=== PATIENT | female | born 1935 | race Hispanic/Latino ===

== ENCOUNTER → 2019-11-26 | Outpatient (CLI) | payer MEDICARE, BC ==
--- NOTE | 2019-11-26 13:24 | Diagnostic Imaging Report ---
CT LUMBAR SPINE WO HISTORY: Lumbar spine pain COMPARISON: None. TECHNIQUE: Axial CT images of the lumbar spine were obtained without contrast. Coronal and sagittal reconstructions obtained from the axial data. One or more of the following dose reduction techniques were used: Automated exposure control, adjustment of the mA and/or kV according to patient size, and/or utilization of iterative reconstruction technique. DISCUSSION: Bone demineralization limits evaluation. There are 5 nonrib-bearing lumbar vertebral bodies. Lumbar lordosis is preserved. Lumbar levoscoliosis is centered at L4-L5. Associated thoracolumbar dextroscoliosis is partially imaged. No definite acute fracture or compression deformity is seen. Incompletely healed, mildly displaced fractures (with callus formation) of the right L1, L2, and L3 transverse processes are present. No gross spinal canal mass is seen. The paravertebral and paraspinal soft tissues are unremarkable. Multilevel advanced spondylotic changes are most prominent at L4-L5 and L5-S1. Mild to moderate bilateral sacroiliac degenerative changes are present as well. T12-L1: Mild bilateral foraminal stenoses due to disc bulge and facet arthrosis. No gross canal stenosis. L1-L2: Mild to moderate left foraminal stenosis due to disc bulge and facet arthrosis. No gross canal or right foraminal stenosis. L2-L3: At least mild canal stenosis due to disc bulge and ligamentum flavum thickening, eccentric to the left. Mild left foraminal stenosis due to disc bulge and facet arthrosis. No gross right foraminal stenosis. L3-L4: At least mild to moderate canal stenosis due to disc bulge and ligamentum flavum thickening. Mild to moderate bilateral foraminal stenoses due to disc bulge and facet arthrosis. L4-L5: At least mild canal stenosis due to disc bulge and ligamentum flavum thickening. Moderate to severe right and mild to moderate left foraminal stenoses due to disc bulge and facet arthrosis L5-S1: Grade 1 anterolisthesis of L5 on S1 is due to chronic right L5 pars defect. Severe right and mild left foraminal stenoses due to uncovered disc bulge and facet arthrosis. No gross canal stenosis. Aortoiliac calcified atherosclerosis is present. IMPRESSION: 1. No acute osseous abnormalities. 2. Incompletely healed, mildly displaced fractures (with callus formation) of the right L1, L2, and L3 transverse processes may be chronic or late subacute. 3. Multilevel advanced spondylosis, most prominent at L4-L5 and L5-S1, with lumbar levoscoliosis centered at L4-L5. 4. Grade 1 anterolisthesis of L5 on S1 due to chronic right L5 pars defect. 5. Multilevel degenerative canal stenoses - at least mild to moderate at L3-L4. 6. Multilevel bilateral degenerative foraminal stenoses - moderate to severe on the right at L4-L5; severe on the right at L5-S1. Signed by: Dr. Christiano Clark M.D. on 11/26/2019 1:20 PM
--- NOTE | 2019-11-26 13:57 | Diagnostic Imaging Report ---
Bilateral knees, 4 views each. History: Fall, knee pain. Findings: The soft tissues are normal. The bones are diffusely osteopenic. Bilateral knee replacements are noted, with prosthetic components intact and in anatomic position. There is no evidence of fracture or dislocation. There are no lytic or sclerotic lesions. IMPRESSION: Status post bilateral knee replacement. No acute osseous abnormality. Signed by: Franco May on 11/26/2019 1:54 PM
--- NOTE | 2019-11-26 13:59 | Diagnostic Imaging Report ---
Left tib-fib series, 2 views. History: Fall, pain. Findings: There is diffuse distal soft tissue swelling. The bones are diffusely osteopenic. Total left knee replacement is noted. Prosthetic components are intact. There is no evidence of fracture or dislocation. There are no lytic or sclerotic lesions. The ankle joint is within normal limits. IMPRESSION: No acute osseous abnormality. Signed by: Franco May on 11/26/2019 1:55 PM
== END ==
LOC: CT 12:15
PROVIDERS: ATTEND Emergency Medicine
DX: M25.562 Pain in left knee (principal); M25.561 Pain in right knee; M54.5 Low back pain; M25.462 Effusion, left knee; W19.XXXA Unspecified fall, initial encounter; G89.29 Other chronic pain; Z96.652 Presence of left artificial knee joint
CPT/HCPCS: 72131

== ENCOUNTER 2020-03-06 15:11 | Emergency (ER) | payer MEDICARE, BC ==
[~2020-03-06] VITALS: Ht 175.3 cm; Wt 90.3 kg
--- OUTSIDE RECORDS SUMMARY | 2020-03-06 15:54 | XMS REPORT | Continuity of Care Document ---
Author Author [facility] Organization [facility] Address [address] [place] [address] Phone Unavailable Care Team Providers Care Director Smb Sales Name Role Phone Werner Otoole MD PCP MARIANNA OTOOLE Attphys Unavailable David Mccoy Attphys Tiny Rebolledo Attphys Unavailable BERLIN WEATHERS M.D. Attphys Unavailable Payers Payer Name Policy Type Policy Number Effective Date Expiration Date S morris MEDICAREMEDICARE PART A AND Bxxxxxxxxxxx1998-[facility] [place] 1999 00:00:00 Soren Wilkinson BCBSBCBS CHOICE PPO/FEDERAL EMPL PPOxxxxxxxxxxxxxxx2009- PresentPPO xxxxxxxxxxxxxxx 2009 00:00:00 Soren Wilkinson Problems Condition Name Condition Details Condition Category Status Onset Date Resolution Date Last Treatment Date Treating Clinician Comments Source S/P revision of total knee, left S/P revision of total knee, lef t Disease Active 2018-05-09 00:00:00 Sofía Wilkinson 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 prosthesis with presence of antibiotic- impregnated cement spacer Disease Active 2018-03-14 00:00:00 Soren Wilkinson Infection and inflammatory reaction due to internal left knee prosthesis, initial encounter Infection and inflammatory reaction due to internal left knee prosthesis, initial encounter Disease Active 2018-03-14 00:00:00 Soren Wilkinson Syncope Syncope Disease Active 2016-04-01 00:00:00 Soren Wilkinson Arthritis of left knee Arthritis of left knee Disease Active 2016-03-23 00:00:[address] S/P total knee arthroplasty S/P total knee arthroplasty Disease Active 2016-03-19 00:00:00 Soren Wilkinson History of Arthritis History of Arthritis Problem Resolved [facility] History of essential hypertension History of essential hypertens ion Problem Resolved [facility] Sensorineural hearing loss Sensorineural hearing loss Problem Active [facility] Bilateral impacted cerumen Bilateral impacted cerumen Problem Active [facility] Allergies, Adverse Reactions, Alerts This patient has no known allergies or adverse reactions. Family History Family Member Diagnosis Comments Start Date Stop Date Source Unknown Family Member Family history of Denial Of Any Significant Medical History Family History [facility] Natural mother Heart disease Soren Wilkinson Social History Social Habit Start Date Stop Date Quantity Comments Source Sex Assigned At Mary Wilkinson Alcohol intake 2018-09-07 00:00:00 2018-09-07 00:00:00 Current non-drinker of alcohol (finding) Soren Wilkinson Smoking Status Start Date Stop Date Source Never smoker Soren Rice t Medications Ordered Medication Name Filled Medication Name Start Date Stop Da te Current Medication? Ordering Clinician Indication Dosage Frequency Signature (SIG) Comments Components Source doxycycline (VIBRAMYCIN) 100 MG capsule 00:00:00 2019-05-19 23:59:00 No 100mg Q.5D Take 1 capsule (100 mg total) by mouth 2 (two) times a day for 30 days. Soren Wilkinson amoxicillin (AMOXIL) 500 MG capsule 2018-09-06 00:00:0 0 2019-09-06 23:59:00 No Take 4 capsules one hour prior to dental procedure. Soren Wilkinson ascorbic acid, vitamin C, (vitamin C) 1000 MG tablet 2 12:41:23 Yes 1000mg QD Take 1,000 mg by mouth daily. Soren Wilkinson cholecalciferol, vitamin D3, (VITAMIN D3) 2,000 unit capsule capsule 2018-05-11 12:41:23 Yes 2000U QD Take 2,000 Units b y mouth daily. Soren Wilkinson clonAZEPAM (KlonoPIN) 1 MG tablet 2016-02-24 00:00:00 Yes .5mg QD Take 0.5 mg by mouth nightly as needed. Mary Wilkinson levothyroxine (SYNTHROID, LEVOTHROID) 100 MCG tablet 2 00:00:00 Yes 100ug QD Take 100 mcg by mouth once daily. Soren Wilkinson omeprazole (PriLOSEC) 40 MG capsule 2016-02-19 00:00:00 Yes 40mg QD Take 40 mg by mouth daily before breakfast. Soren Wilkinson atorvastatin (LIPITOR) 20 MG tablet 2016-01-28 00:00:00 Yes 20mg QD Take 20 mg by mouth nightly. Soren Rice t losartan (COZAAR) 100 MG tablet 2016-01-28 00:00:00 Yes TAKE 1 TABLET ONCE DAILY DAILY ORALLY [address] [facility] atenolol-chlorthalidone (TENORETIC) 50-25 mg per tablet 2015-12-06 00:00:00 Yes 1{tbl} QD Take 1 tablet by mouth every morning. Soren Wilkinson Cozaar 50 MG Oral Tablet Cozaar 50 MG Oral Tablet Yes [facility] Lipitor 20 MG Oral Tablet Lipitor 20 MG Oral Tablet Yes [facility] Atenolol-Chlorthalidone 50-25 MG Oral Tablet Atenolol- Chlorthalidone 50-25 MG Oral Tablet Yes [facility] Synthroid 125 MCG Oral Tablet Synthroid 125 MCG Oral Tablet Sameer mills [facility] Premarin 0.625 MG Oral Tablet Premarin 0.625 MG Oral Tablet Sameer mills [facility] LORazepam 0.5 MG Oral Tablet LORazepam 0.5 MG Oral Tablet Yes [facility] Vital Signs Vital Name Observation Time Observation Value Comments Source Body height 2019-04-19 13:45:00 166.4 cm Soren Wilkinson Body weight 2019-04-19 13:45:00 106.595 kg Soren Wilkinson BMI 2019-04-19 13:45:00 38.51 kg/m2 Soren Wilkinson Height 2017-09-19 11:05:00 66 [in_us] [facility] Weight 2017-09-19 11:05:00 239 [lb_av] [facility] Body Mass Index Calculated 2017-09-19 11:05:00 38.58 kg/m2 [facility] Procedures Procedure Date / Time Performed Performing Clinician Sourc e XR KNEE 3 VW LEFT 2019-04-19 14:06:53 [facility] History of Venous Ligation With Stripping [facility] History of Hysterectomy [facility] History of Intracranial Aneurysm Repair [facility] History of Nose Surgery [facility] History of Cholecystectomy Laparoscopic [facility] Plan of Care Planned Activity Planned Date Details Comments Source Future Scheduled Test 2020-04-10 00:00:00 INFLUENZA VACCINE [code = INFLUENZA VACCINE] [facility] Future Scheduled Test 1998 00:00:00 65+ PNEUMOCOCCAL V ACCINE (1 of 2 - PCV13) [code = 65+ PNEUMOCOCCAL VACCINE (1 of 2 - PCV13)] [facility] Future Scheduled Test 1983-12-31 00:00:00 SHINGLES VACCINES (#1) [code = SHINGLES VACCINES (#1)] [facility] Encounters Start Date/Time End Date/Time Encounter Type Admission Type [facility] Care Department Encounter ID Source 2019-01-18 12:34:00 2019-01-18 12:34:00 Outpatient [facility] [id number] [facility] 2017-09-19 11:15:00 2017-09-19 11:15:00 Appointment; BERLIN WEATHERS M.D. SIMMONS, JOHN, M.D. [facility] Otorhinolaryngology [facility] [id number] [facility] Results Test Description Test Time Test Comments Results Result Comments Source LOWER LEG LEFT 2019-11-26 13:54:00 [place] [address] Patient Name: GERARDO PAZ MR #: [id number] : 1935 Age/Sex: 83/F Req #: [id number] Adm Physician: Ordered by: MARIANNA OTOOLE MD Report #: [id number] Location: [place] Room/Bed: Procedure: [id number] DX/LOWER LEG LEFT Exam Date: 11/26/19 Exam Time: 1242 REPORT STATUS: Signed Left tib-fib series, 2 views. History: Fall, pain. Findings: There is diffuse distal soft tissue swelling. The bones are diffusely osteopenic. Total left knee replacement is noted. Prosthetic components are intact. There is no evidence of fracture or d islocation. There are no lytic or sclerotic lesions. The ankle joint is within normal limits. IMPRESSION: No acute osseous abnormality. Signed by: Franco May on 11/26/2019 1:55 PM Dictated By: FRANCO MAY MD 1354 Transcribed By: TANNER on 11/26/19 1358 COPY TO: MARIANNA OTOOLE MD KNEE LEFT THREE VIEWS 2019-11-26 13:48:00 [place] [address] Patient Name: GERARDO PAZ MR #: [id number] : 1935 Age/Sex: 83/F Req #: [id number] Adm Physician: Ordered by: MARIANNA OTOOLE MD Report #: [id number] Location: CT Room/Bed: Procedure: [id number] DX/KNEE LEFT THREE VIEWS Exam Date: 11/26/19 Exam Time: 1242 REPORT STATUS: Signed Bilateral knees, 4 views each. History: Fall, knee pain. Findings: The soft tissues are normal. The bones are diffusely osteopenic. Bilateral knee replacements are noted, with prosthetic components intact and in anatomic position. There is no evidence of fracture or dislocation. There are no lytic or sclerotic lesions. IMPRESSION: Status post bilateral knee replacement. No acute osseous abnormality. Signed by: Franco May on 11/26/2019 1:54 PM Dictated By: FRANCO MAY MD 135 Transcribed By: TANNER on 11/26/191353 COPY TO: MARIANNA OTOOLE MD KNEE RIGHT THREE VIEWS 2019-11-26 13:48:00 [place] [address] Patient Name: GERARDO PAZ MR #: [id number] : 1935 Age/Sex: 83/F Req #: [id number] Adm Physician: Ordered by: MARIANNA OTOOLE MD Report #: [id number] Location: [place] Room/Bed: Procedure: [id number] DX/KNEE RIGHT THREE VIEWS Exam Date: 11/26/19 Exam Time: 1242 REPORT STATUS: Signed Bilateral knees, 4 views each. History: Fall, knee pain. Findings: The soft tissues are normal. The bones are diffusely osteopenic. Bilateral knee replacements are noted, with prosthetic components intact and in anatomic position. There is no jannet dence of fracture or dislocation. There are no lytic or sclerotic lesions. IMPRESSION: Status post bilateral knee replacement. No acute osseous abnormality. Signed by: Franco May on 11/26/2019 1:54 PM Dictated By: FRANCO MAY MD 135 Transcribed By: TANNER on 11/26/19 135 COPY TO: MARIANNA OTOOLE MD CT LUMBAR SPINE WO 2019-11-26 13:09:00 [place] [address] Patient Name: GERARDO PAZ MR #: [id number] : 1935 [facility] 83[id number] Re #: [id number] Adm Physician: Ordered by: MARIANNA OTOOLE MD Report #: [id number] Location: CT Room/Bed: Procedure: [id number] CT/CT LUMBAR SPINE WO Exam Date: 11/26/19 Exam Time: 1230 REPORT STATUS: Signed CT LUMBAR SPINE WO HISTORY: Lumbar spine pain COMPARISON: None. TECHNIQUE: Axial CT images of the lumbar spine were obtained without contrast. Coronal and sagittal reconstructions obtained from the axial data. One or more of the following dose reduction techniques were used: Automated exposure control, adjustment of the mA and/or kV according to patient size, and/or utilization of iterative reconstruction technique. DISCUSSION: Bone demineralization limits evaluation. There are 5 nonrib-bearing lumbar vertebral bodies. Lumbar lordosis is preserved. Lumbar levoscoliosis is centered at L4-L5. Associated thoracolumbar dextroscoliosis is partially imaged. No definite acute fracture or compression deformity is seen. Incompletely healed, mildly displaced fractures (with callus formation) of the right L1, L2, and L3 transverse processes are present. No gross spinal canal mass is seen. The paravertebral and paraspinal soft tissues are unremarkable. Multilevel advanced spondylotic changes are most prominent at L4-L5 and L5-S1. Mild to moderate bilateral sacroiliac degenerative changes are present as well. T12-L1: Mild bilateral foraminal stenoses due to disc bulge and facet arthrosis. No gross canal stenosis. L1-L2: Mild to moderate left foraminal stenosis due to disc bulge and facet arthrosis. No gross canal or right foraminal stenosis. L2-L3: At least mild canal stenosis due to disc bulge and ligamentum flavum thickening, eccentric to the left. Mild left foraminal stenosis due to disc bulge and facet arthrosis. No gross right foraminal stenosis. L3-L4: At least mild to moderate canal stenosis due to disc bulge and ligamentum flavum thickening. Mild to moderate bilateral foraminal stenoses due to disc bulge and facet arthrosis. L4-L5: At least mild canal stenosis due to disc bulge and ligamentum flavum thickening. Moderate to severe right and mild to moderate left foraminal stenoses due to disc bulge and facet arthrosis L5-S1: Grade 1 anterolisthesis of L5 on S1 is due to chronic right L5 pars defect. Severe right and mild left foraminal stenoses due to uncovered disc bulge and facet arthrosis. No gross canal stenosis. Aortoiliac calcified at herosclerosis is present. IMPRESSION: 1. No acute osseous abnormalities. 2. Incompletely healed, mildly displaced fractures (with callus formation) of the right L1, L2, and L3 transverse processes may be chronic or late subacute. 3. Multilevel advanced spondylosis, most prominent at L4-L5 and L5-S1, with lumbar levoscoliosis centered at L4-L5. 4. Grade 1 anterolisthesis of L5 on S1 due to chronic right L5 pars defect. 5. Multilevel degenerative canal stenoses - at least mild to moderate at L3-L4. 6. Multilevel bilateral degenerative foraminal stenoses - moderate to severe on the right at L4-L5; severe on the right at L5-S1. Signed by: Dr. Christiano Clark M.D. on 11/26/2019 1:20 PM Dictated By: CHRISTIANO CLARK MD 1320 Transcribed By: TANNER on 11/26/19 1320 COPY TO: MARIANNA OTOOLE MD
--- OUTSIDE RECORDS SUMMARY | 2020-03-06 15:54 | XMS REPORT | Clinical Summary ---
Author Author [facility] [facility] Address Unknown Phone Unavailable Care Team Providers Care Marine Engine Driver Name Role Phone Audi Otoole MD PCP Allergies No Known Allergies Medications End Date Status Medication Sig Dispensed Refills Start Date Active atorvastatin (LIPITOR) 20 Take 20 mg by 2 01/09 MG tablet mouth 6 nightly. Active levothyroxine (SYNTHROID, Take 100 mcg 0 02/08 LEVOTHROID) 100 MCG by mouth once 6 tablet daily. Active omeprazole (PriLOSEC) 40 Take 40 mg by 2 02/18 MG capsule mouth daily 6 before breakfast. Active atenolol-chlorthalidone Take 1 tablet 2 (TENORETIC) 50-25 mg per by mouth 6 tablet every morning. Active clonAZEPAM (KlonoPIN) 1 Take 0.5 mg 0 MG tablet by mouth 6 nightly as needed. Active losartan (COZAAR) 100 MG TAKE 1 TABLET 3 01/27 tablet ONCE DAILY 6 DAILY ORALLY 90 Active ascorbic acid, vitamin C, Take 1,000 mg 0 (vitamin C) 1000 MG by mouth tablet daily. Active cholecalciferol, vitamin Take 2,000 0 D3, (VITAMIN D3) 2,000 Units by unit capsule capsule mouth daily. 09/06/2019 amoxicillin (AMOXIL) 500 Take 4 4 capsule 3 0 MG capsule capsules one 9 hour prior to dental procedure. 05/19/2019 doxycycline (VIBRAMYCIN) Take 1 60 capsule 11 1 100 MG capsule capsule (100 9 mg total) by mouth 2 (two) times a day for 30 days. 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 03/14/2018 with presence of antibiotic-impregnated cement spacer Infection and inflammatory reaction due to internal l eft knee prosthesis, 03/14/2018 initial encounter Syncope 04/01/2016 Arthritis of left knee 03/23/2016 S/P total knee arthroplasty 03/19/2016 Encounters Care Team Description Date Type Specialty Kevin Knight PA History of removal of joint prosthesis o f left knee due to infection (Primary Dx); Status post revision of total replacement of left knee; Left knee pain, unspecified chronicity 04/19/2019 Office Visit Orthopedic Surgery Tiny Rebolledo History of left knee replacement (Primar y Dx) 04/19/2019 Orders Only Orthopedic Surgery after 03/06/2019 Family History Medical History Relation Name Comments Heart disease Mother Relation Name Status Comments Mother (Age 84) Social History Date Tobacco Use Types Packs/Day Years Used Never Smoker Smokeless Tobacco: Never Used Drinks/Week oz/Week Comments Alcohol Use No Sex Assigned at Date Recorded Not on file Industry Job Start Date Occupation Not on file Not on file Not on file Travel End Travel History Travel Start No recent travel history available. Last Filed Vital Signs Reading Time Taken Comments Vital Sign - - Blood Pressure - - Pulse - - Temperature - - Respiratory Rate - - Oxygen Saturation - - Inhaled Oxygen Concentration 107 kg (235 lb) 04/19/2019 1:45 PM CDT Weight 166.4 cm (5' 5.5") 04/19/2019 1:45 PM CDT Height 38.51 04/19/2019 1:45 PM CDT Body Mass Index Plan of Treatment Health Maintenance Due Date Last Done Comments SHINGLES VACCINES (#1) 12/31/1983 65+ PNEUMOCOCCAL VACCINE 1998 (1 of 2 - PCV13) INFLUENZA VACCINE 04/10/2020 Implants Device Identifier Shelf Expiration Date Model / Serial / L ot Implanted Type Area Manufactur er 03/10/2026 42 [id number] Tri Tib Cmt Stm 5 Deg Sz D L, IPM Left: Knee [employer] Persona Knee Joint Implant - IMPLANT [id number] DEVICES Implanted: Qty: 1 on 03/23/2016 by Byron Holden MD at [facility] 09/08/2019 [id number] / / [id number] Psn Mc Ve Asf L 10mm 4-5/Cd - IPM Left: Knee [employer] [id number] IMPLANT Implanted: Qty: 1 on 03/23/2016 by DEVICES Byron Holden MD at [facility] 02/08/2024 42 [id number] 32 / / [id number] All Poly Pat 32 Mm Nelia, Persona IPM Left: Knee [employer] Knee Joint Implant - [id number] IMPLANT Implanted: Qty: 1 on 03/23/2016 by DEVICES Byron Holden MD at [facility] 10/08/2025 [id number] / / [id number] Tri Fem Cr Cmt Ccr Cnt Sz 5 L, IPM Left: Knee [employer] Persona Knee Joint Implant - IMPLANT [id number] DEVICES Implanted: Qty: 1 on 03/23/2016 by Byron Holden MD at [facility] 09/07/2020 [id number] / / [id number] Psn Mc Ve Asf L 10mm 4-5/Cd - IPM Left: Knee [employer] [id number] IMPLANT Implanted: Qty: 1 on 04/01/2016 by Byron Cardona MD at [facility] 05/11/2022 [facility] / / [id number] Remedy&174; Femoral Component IPM Left: Kn ee Medium - [id number] IMPLANT Implanted: Qty: 1 on 03/14/2018 by Byron Cardona MD at [facility] 04/09/2026 42 [id number] 32 / / [id number] All Poly Pat 32 Mm Nelia, Persona IPM Left: Knee [employer] Knee Joint Implant - [id number] IMPLANT Implanted: Qty: 1 on 05/09/2018 by Byron Cardona MD at [facility] 04/09/2026 42 [id number] 32 / / [id number] All Poly Pat 32 Mm Nelia, Persona IPM Left: Knee [employer] Knee Joint Implant - [id number] IMPLANT Implanted: Qty: 1 on 05/09/2018 by Byron Cardona MD at [facility] 01/08/2022 [facility] / / [id number] 60mm Remedy Tibial Component Knee Left: Kne e Implanted: Qty: 1 on 03/14/2018 by Navin Mazariegos Stephen J., MD at [facility] Reconstruc tion 08/10/2019 [id number] / / [id number] Cement Bone R+G 1dose [place]acos - Knee Joint Left: Knee [employer] [id number] Implants Implanted: Qty: 1 on 03/23/2016 by Byron Holden MD at [facility] 08/10/2019 [id number] / / [id number] Cement Bone R+G 1dose Palacos - Knee Joint Left: Knee [employer] [id number] Implants Implanted: Qty: 1 on 03/23/2016 by Byron Holden MD at [facility] 02/07/2023 [id number] / / [id number] Surface Artclr Rhk Sz C 12mm Strl Knee Joint Left: Knee [employer] Nexgen - [id number] Implants Implanted: Qty: 1 on 05/09/2018 by Byron Holden MD at [facility] 04/09/2028 [id number] / / [id number] Augment Fml Block Nexgen Distl Knee Joint Left: Knee [employer] P-Coat Sz C Tivn Pmma 10mm - Implants [id number] Implanted: Qty: 1 on 05/09/2018 by Byron Holden MD at [facility] 04/09/2028 [id number] / / [id number] Extension Stem Cementd [id number] Knee Joint Left: Knee [employer] (60mm) Nexgen - [id number] Implants Implanted: Qty: 1 on 05/09/2018 by Byron Holden MD at [facility] 12/08/2022 [id number] / / [id number] Component Fml Lt Rhk Sz C Nexgen - Knee Joint Left: Knee [employer] [id number] Implants Implanted: Qty: 1 on 05/09/2018 by Byron Holden MD at [facility] 04/09/2023 [id number] / / [id number] Plate Tib Rotng Hinge Nmodlr Sz 2 Knee Joint Left: Knee [employer] Nexgen - [id number] Implants Implanted: Qty: 1 on 05/09/2018 by Byron Holden MD at [facility] 05/10/2025 [id number] / / [id number] Augment Fml Block Nexgen Distl Knee Joint Left: Knee [employer] P-Coat Sz C Tivn Pmma 10mm - Implants [id number] Implanted: Qty: 1 on 05/09/2018 by Byron Holden MD at [facility] 07/10/2019 [id number] / / [id number] Cement Bone Full-Dose Premxd W/ Surgical Left: Knee HOLDEN Tobr Simplex P Pack 10/Ea - Bone ORTHOPEDIC [id number] Cement S Implanted: Qty: 1 on 03/14/2018 by HIPS-KNEES Byron Holden MD at [facility] 07/10/2019 [id number] / / [id number] Cement Bone Full-Dose Premxd W/ Surgical Left: Knee HOLDEN Tobr Simplex P Pack 10/Ea - Bone ORTHOPEDIC [id number] Cement S Implanted: Qty: 1 on 03/14/2018 by HIPS-KNEES Byron Holden MD at [facility] 07/10/2019 [id number] / / [id number] Cement Bone Full-Dose Premxd W/ Surgical Left: Knee HOLDEN Tobr Simplex P Pack 10/Ea - Bone ORTHOPEDIC [id number] Cement S Implanted: Qty: 1 on 03/14/2018 by HIPS-KNEES Byron Holden MD at [facility] 05/10/2022 [id number] / / [id number] Cement Bone Biomet R 40g - Surgical Left: Knee [employer]IM [employer] [id number] Bone Implanted: Qty: 4 on 05/09/2018 by Byron Cartagena MD at [facility] 11/08/2022 [id number] / / [id number] Cement Bone Prep Univl Insrtr Sculp Surgical Left: Knee HOLDEN Fml Canal [place]a Suct Sm - Implants; INSTRUMENT [id number] Expanders; S Implanted: Qty: 1 on 05/09/2018 by Extenders; Byron Holden MD at [facility] Wires [id number] / / Pin Ortho Dmnd Pnt Thred Staninless Temporary Left: Knee [employer] Stel [id number] - [id number] Fixation Implanted: Qty: 2 on 03/14/2018 by Pin or Byron Holden MD at [facility] Description:Antibiotic spacer Procedures Comments Procedure Name Priority Date/Time Associated Diag nosis XR KNEE 3 VW LEFT Routine 04/19/2019 History of l eft knee 2:06 PM CDT replacement after 03/06/2019 Results * XR Knee 3 Vw Left (04/19/2019 2:06 PM CDT) Specimen Narrative Performed At [facility] Left knee radiographs reveal a cemented , well-positioned, left revision total knee arthroplasty. All components appear stable. There is a contralateral right revision knee arthr oplasty also in place. Performing Organization Address [facility] Number [facility] [address] [place] [address] after 03/06/2019 Insurance Type Payer Benefit Subscriber ID Effective Phone Address Plan / Dates Group Medicare MEDICARE MEDICARE xxxxxxxxxxx 1999-P [place] PPO BCBS BCBS xxxxxxxxxxxxxxx 2009-P CHOICE resent PPO/F[place] L EMPL PPO Advance Directives For more information, please contact: [phone] Patient Heart Doctor Explanation Type Date Recorded Advance Directives, 03/14/2018 7:10 AM Living Will and Medical Power of Career Technology Teacher Advance Directives, 05/10/2018 9:48 AM Living Will and Medical Power of Career Technology Teacher
[2020-03-06] MEDS ORDERED: SODIUM CHLORIDE 0.9% 1000ML 1,000 ML IV STA (16:59)
--- NOTE | 2020-03-06 17:03 | Emergency Department Note ---
History of Present Illnes History of Present Illness Chief Complaint: Abdominal Complaints History of Present Illness This is a 84 year old female c/o mid abd pain n/v for 1 week, had diarrhea but it has gone (nursing note says 3 days) . Historian: Patient Arrival Mode: Car Additional Treatment BARTACKER: n/a Traffic Engineering Director Required: No Onset (how long ago): week(s) Radiation: Reports non-radiation Severity: moderate Onset quality: gradual Progression: waxing and waning Chronicity: new Relieving factors: none Exacerbating factors: none Associated symptoms: Reports loss of appetite, Reports malaise, Reports nausea/vomiting Treatments prior to arrival: none Past Medical/Family History Physician Review I have reviewed the patient's past medical and family history. Any updates have been documented here. Past Medical History Recent Fever: No Clinical Suspicion of Infectio: No New/Unexplained Change in Ment: No Past Medical History: Hypertension, UTI's, Anxiety, Hyperlipedemia, Osteoarthritis Past Surgical History: Cholecysctectomy, Appendectomy, Hysterectomy, Knee Replacement Social History Smoking Cessation: Never Smoker Counseling Performed: No Alcohol Use: None Any Illegal Drug Use: No Physically hurt or threatened: No Other Any Pre-Existing Lines (PICC,: No Review of Systems Review of Systems Constitutional: Reports no symptoms EENTM: Reports no symptoms Cardiovascular: Reports no symptoms Respiratory: Reports no symptoms Gastrointestinal: Reports as per HPI Genitourinary: Reports no symptoms Musculoskeletal: Reports no symptoms Integumentary: Reports no symptoms Neurological: Reports no symptoms Psychological: Reports no symptoms Endocrine: Reports no symptoms Hematological/Lymphatic: Reports no symptoms Physical Exam Related Data Allergies: Coded Allergies: No Known Allergies (Unverified , 03/06/20) Triage Vital Signs Vital Signs Date Time Temp Pulse Resp B/P (MAP) Pulse Ox O2 Delivery O2 Flow Rate FiO2 03/06/20 16:04 98.3 65 17 173/67 99 Room Air Physical Exam CONSTITUTIONAL Constitutional: Present well-developed, Present well-nourished, Present obese HENT HENT: Present normocephalic, Present atraumatic, Present oropharynx clear/moist, Present nose normal HENT L/R: Present left ext ear normal, Present right ext ear normal EYES Eyes: Reports PERRL, Reports conjunctivae normal NECK Neck: Present ROM normal PULMONARY Pulmonary: Present effort normal, Present breath sounds normal CARDIOVASCULAR Cardiovascular: Present regular rhythm, Present heart sounds normal, Present capillary refill normal, Present normal rate GASTROINTESTINAL Abdominal: Present soft, Present nontender, Present bowel sounds normal, Present distension, Present tender GENITOURINARY Genitourinary: Present exam deferred SKIN Skin: Present warm, Present dry MUSCULOSKELETAL Musculoskeletal: Present ROM normal NEUROLOGICAL Neurological: Present alert, Present oriented x 3, Present no gross motor or sensory deficits PSYCHOLOGICAL Psychological: Present mood/affect normal, Present judgement normal Results Laboratory Laboratory UA clean Lab results reviewed: Yes Laboratory comments cr 1.7, LFT elevated Pt reports hx of CKD, and elevated Liver enzymes, seeing Dr Mukesh carter. Imaging Imaging results reviewed: Yes Imaging Comments no acute Assessment & Plan Medical Decision Making MDM SBO, colitis Reassessment Reassessment time: 19:10 Reassessment doing better "tiny pain" Assessment & Plan Final Impression: (1) Abdominal pain (2) Renal failure Depart Disposition: HOME, SELF-CARE Last Vital Signs Date Time Temp Pulse Resp B/P (MAP) Pulse Ox O2 Delivery O2 Flow Rate FiO2 03/06/20 16:04 98.3 65 17 173/67 99 Room Air Physician Attestation Provider Attestation patient is taking PO well, declines admission. CHAD WESLEY MD Mar 06, 2020 17:03
[2020-03-06 17:37] LABS: BASOPHILS % 0.4 % (0.0-1.0); EOSINOPHILS # (AUTO) 0.1 (0.0-0.4); HEMATOCRIT 35.1 % (34.2-44.1); HEMOGLOBIN 10.8 g/dL (12.0-16.0); MEAN CORPUSCULAR HEMOGLOBIN 30.4 pg (28-32); MEAN CORPUSCULAR HGB CONC 30.8 g/dL (31-35); MEAN CORPUSCULAR VOLUME 98.9 fL (81-99); MONOCYTES # (AUTO) 0.7 (0.2-0.8); MONOCYTES % 6.8 % (4.4-11.3); NEUTROPHILS # (AUTO) 7.5 (2.1-6.9); NEUTROPHILS % 72.5 % (38.7-80.0); PLATELET COUNT 164 x10e3/uL (140-360); RED BLOOD COUNT 3.55 x10e6/uL (3.6-5.1); RED CELL DISTRIBUTION WIDTH 13.4 % (11.7-14.4)
[2020-03-06 17:55] LABS: ALBUMIN 3.5 g/dL (3.5-5.0); ALBUMIN/GLOBULIN RATIO 1.1 (0.8-2.0); ANION GAP 17.9 mmol/L (8-16); CALCIUM 9.6 mg/dL (8.4-10.2); CREATININE, SERUM 1.77 mg/dL (0.57-1.11); POTASSIUM 4.9 mmol/L (3.5-5.1)
[2020-03-06] MEDS ORDERED: FAMOTIDINE 20 MG/2 ML VIAL IV ONE (18:00)
[2020-03-06] MEDS ORDERED: ONDANSETRON HCL INJ 2MG/ML 2ML 2 MG/ML VIAL IV ONE (18:00)
[2020-03-06] MEDS ORDERED: LORAZEPAM INJ 2 MG/ML VIAL IV ONE (18:15)
--- NOTE | 2020-03-06 19:03 | Diagnostic Imaging Report ---
EXAM: CT Abdomen and Pelvis WITHOUT contrast INDICATION: Evaluate for for diverticulitis,sbo, panreatitis, hernia, constipat COMPARISON: None. TECHNIQUE: Abdomen and pelvis were scanned utilizing a multidetector helical scanner from the lung base to the pubic symphysis without administration of IV contrast. Absence of intravenous contrast decreases sensitivity for detection of focal lesions and vascular pathology. Coronal and sagittal reformations were obtained. Routine protocol was performed. IV CONTRAST: None ORAL CONTRAST: None COMPLICATIONS: None RADIATION DOSE: Total DLP: 807.53 mGy*cm Estimated effective dose: (DLP x 0.015 x size factor) mSv CTDIvol has been reviewed. It is below the limits set by the Radiation Protocol Committee (RPC). Dose modulation, iterative reconstruction, and/or weight based adjustment of the mA/kV was utilized to reduce the radiation dose to as low as reasonably achievable. FINDINGS: LINES and TUBES: None. LOWER THORAX: There is bibasilar atelectasis and atherosclerotic ossification of the coronary vessels. HEPATOBILIARY: No focal hepatic lesions. No biliary ductal dilation. GALLBLADDER: Surgically absent SPLEEN: No splenomegaly. PANCREAS: Fatty atrophy of the pancreas. No focal masses or ductal dilatation. ADRENALS: No adrenal nodules KIDNEYS/URETERS: No hydronephrosis. No cystic or solid mass lesions. No stones. GI TRACT: High density structure within the gastric antrum represents ingested material, likely pills. No abnormal distention, wall thickening, or evidence of bowel obstruction. Appendix is normal. PELVIC ORGANS/BLADDER: Unremarkable. LYMPH NODES: No lymphadenopathy. VESSELS: There is moderate atherosclerotic disease in the aorta and major arterial branches. PERITONEUM / RETROPERITONEUM: No free air or fluid. BONES: There are degenerative changes in the spine. SOFT TISSUES: Unremarkable. IMPRESSION: No acute abdominopelvic findings to explain the patient's symptoms were identified. Signed by: Chelsea Alonzo MD on 03/06/2020 6:59 PM
[2020-03-06 19:05] LABS: CLARITY,URINE SL CLOUDY (CLEAR); COLOR,URINE YELLOW (YELLOW)
[2020-03-06 19:06] LABS: BILIRUBIN,URINE NEGATIVE (NEGATIVE); KETONES,URINE NEGATIVE (NEGATIVE); LEUKOCYTE ESTERASE ,URINE SMALL (NEGATIVE); NITRITE,URINE NEGATIVE (NEGATIVE); PROTEIN,URINE DIPSTICK NEGATIVE (NEGATIVE); URINE UROBILINOGEN 0.2 mg/dL (0.2 - 1)
[2020-03-06 19:12] LABS: BACTERIA,URINE MANY /HPF; EPITHELIAL CELLS,URINE FEW /LPF
== END 2020-03-06 20:00 | disposition home or self-care (01) ==
LOC: ER 15:20
DX: R10.31 Right lower quadrant pain (principal); N19 Unspecified kidney failure; R11.2 Nausea with vomiting, unspecified; R53.81 Other malaise; I10 Essential (primary) hypertension; E78.5 Hyperlipidemia, unspecified
CPT/HCPCS: 36415; 74176; 80053; 81001; 83605; 83690; 83880; 85025; 99284; J2060; J2405; J7030

== ENCOUNTER → 2020-03-12 | Outpatient (CLI) | payer MEDICARE, BC ==
--- NOTE | 2020-03-12 14:25 | Diagnostic Imaging Report ---
Exam: Bone mineral density study. History: Osteopenia. Comparison: None Discussion: Evaluation of the left hip and lumbar spine was performed utilizing DEXA Hologic bone densitometer. The study is technically adequate. Left hip total bone mineral density: 0.725gm/cm2, T-score is -1.8, Left hip femoral neck bone mineral density: 0.746gm/cm2, T-score is -1.1, Lumbar spine total bone mineral density:1.007gm/cm2, T-score is-0.4, Impression: 1. Osteopenia of the left hip, fracture risk is increased 2. Normal bone mineral density of the lumbar spine, fracture risk is not increased. Least significant change (LSC) for bone mineral density as provided by aquatic ecologist is 0.023 g/cm2 for lumbar spine and 0.027 g/cm2 for total hip. 10 -year fracture risk per WHO Fracture Risk Assessment Tool (FRAX) for: Not reported because prior hip or vertebral fracture. The patient's fracture risk is compared to an age-matched control. Medical evaluation for secondary causes of low bone bone mineral density may be appropriate. Correlate clinically for the necessity and timing of the next bone mineral density study. Signed by: Dr. Kevin May M.D. on 03/12/2020 2:21 PM
== END ==
LOC: DX 13:41
PROVIDERS: ATTEND Emergency Medicine
DX: M85.9 Disorder of bone density and structure, unspecified (principal)
CPT/HCPCS: 77080

== ENCOUNTER → 2020-10-27 | Outpatient (CLI) | payer OTHER | LOC: CT 11:23 | PROVIDERS: ATTEND Orthopaedic Surgery | DX: M54.5 Low back pain (principal); G89.29 Other chronic pain; M41.80 Other forms of scoliosis, site unspecified | CPT/HCPCS: 72131 ==

== ENCOUNTER → 2022-12-22 | Outpatient (CLI) | payer MEDICARE | LOC: CT 13:09 | PROVIDERS: ATTEND Emergency Medicine | DX: R10.9 Unspecified abdominal pain (principal) | CPT/HCPCS: 74176 ==